=== PATIENT | female | born 1995 ===

== ENCOUNTER 2016-09-04 15:56 | Emergency (ER) | payer BC ==
[2016-09-04 16:17] VITALS: BP 114/56
--- NOTE | 2016-09-04 16:57 | UC ---
Respiratory Complaint HPI - HPI Summary HPI Summary: patient has been fighting on and off cough and congestion, fever for the past two months. 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 - History of Current Complaint Chief Complaint: UCGeneralIllness Stated Complaint: COUGH FEVER Time Seen by Provider: 09/04/16 16:37 Hx Obtained From: Patient Hx Last Menstrual Period: 08/12/16 ?: No Onset/Duration: Gradual Onset, Lasting Weeks Timing: Constant Severity Initially: Moderate Severity Currently: Moderate Pain Intensity: 4 Pain Scale Used: 0-10 Numeric Character: Cough: Productive Aggravating Factors: Exertion, Deep Breaths, Recumbent Position Alleviating Factors: Nothing Associated Signs And Symptoms: Positive: Dyspnea, URI, Nasal Congestion, Sinus Discomfort - Risk Factors Pulmonary Embolism Risk Factors: Negative Cardiac Risk Factors: Negative - Allergies/Home Medications Allergies/Adverse Reactions: Allergies Allergy/AdvReac Type Severity Reaction Status Date / Time No Known Allergies Allergy Verified 09/04/16 16:16 Home Medications: Home Medications Drospirenone-Ethinyl Estradiol [Janis 3-0.02 mg] 1 tab PO DAILY 09/04/16 [History Confirmed 09/04/16] PMH/Surg Hx/FS Hx/Imm Hx Previously Healthy: Yes - Surgical History Surgical History: Yes Surgery Procedure, Year, and Place: left knee surgery 2009 - Family History Known Family History: Negative: Cardiac Disease, Hypertension - Social History Alcohol Use: Occasionally Substance Use Type: None Smoking Status (MU): Never Smoked Tobacco Review of Systems Constitutional: Fever, Fatigue Skin: Negative Eyes: Negative ENT: Sore Throat, Nasal Discharge Respiratory: Shortness Of Breath, Cough Cardiovascular: Negative Gastrointestinal: Negative Genitourinary: Negative Motor: Negative Neurovascular: Negative Musculoskeletal: Myalgia Neurological: Headache Psychological: Negative All Other Systems Reviewed And Are Negative: Yes Physical Exam Triage Information Reviewed: Yes Appearance: Well-Nourished, Ill-Appearing, Pain Distress Vital Signs: Initial Vital Signs Temp 99.7 F 09/04/16 16:12 Pulse 61 09/04/16 16:12 Resp 16 09/04/16 16:12 BP 114/56 09/04/16 16:12 Pulse Ox 100 09/04/16 16:12 Vital Signs Reviewed: Yes Eye Exam: Normal Eyes: Positive: Conjunctiva Clear ENT: Positive: Pharyngeal erythema, TMs normal, Muffled/hoarse voice Dental Exam: Normal Neck exam: Normal Neck: Positive: Supple, Nontender, No Lymphadenopathy Respiratory Exam: Normal Respiratory: Positive: Chest non-tender, No respiratory distress, No accessory muscle use, Wheezing, Inspiration Cardiovascular Exam: Normal Cardiovascular: Positive: RRR, No Murmur, Pulses Normal Abdominal Exam: Normal Abdomen Description: Positive: Nontender, No Organomegaly, Soft Bowel Sounds: Positive: Present Musculoskeletal Exam: Normal Musculoskeletal: Positive: Strength Intact, ROM Intact, No Edema Neurological Exam: Normal Neurological: Positive: Alert, Muscle Tone Normal Psychological Exam: Normal Skin Exam: Normal UC Diagnostic Evaluation - Laboratory O2 Sat by Pulse Oximetry: 100 Respiratory Course/Dx - Course Course Of Treatment: hx obtained, exam performed, meds prescribed, for bronchospasm - Differential Dx/Diagnosis Differential Diagnosis/HQI/PQRI: Asthma, Bronchitis, Influenza, Laryngitis, Sinusitis Provider Diagnoses: bronchospams Discharge - Discharge Plan Condition: Stable Disposition: HOME Prescriptions: guaiFENesin/CODIEN 100MG-10MG* [Robitussin AC 100Mg-10Mg*] 10 ml PO BEDTIME PRN #100 ml MDD 10 ml PRN Reason: Cough predniSONE TAB* [Deltasone TAB*] 40 mg PO DAILY #10 tab Patient Education Materials: Bronchospasm (ED)
== END 2016-09-04 17:21 | disposition home or self-care (01) ==
LOC: UCCORT 15:56
DX: J98.01 Acute bronchospasm (principal)
CPT/HCPCS: 99202; G0463

== ENCOUNTER 2016-11-28 12:37 | Emergency (ER) | payer BC ==
[2016-11-28 13:21] VITALS: BP 110/58
--- NOTE | 2016-11-28 13:53 | UC ---
Throat Pain/Nasal Woodrow HPI - HPI Summary HPI Summary: THREE DAYS OF SORE THROAT COUGH ACHE CHILLS. - History of Current Complaint Chief Complaint: UCRespiratory Stated Complaint: SORE THROAT ACHY CHILLS Time Seen by Provider: 11/28/16 12:43 Hx Obtained From: Patient Hx Last Menstrual Period: 11/23/16 Onset/Duration: Gradual Onset, Lasting Days, Still Present Severity: Moderate Cough: Nonproductive Associated Signs & Symptoms: Positive: Hoarseness, Fever - Allergies/Home Medications Allergies/Adverse Reactions: Allergies Allergy/AdvReac Type Severity Reaction Status Date / Time No Known Allergies Allergy Verified 11/28/16 13:14 PMH/Surg Hx/FS Hx/Imm Hx Previously Healthy: Yes - Surgical History Surgical History: Yes Surgery Procedure, Year, and Place: left knee surgery 2009 - Family History Known Family History: Negative: Cardiac Disease, Hypertension - Social History Occupation: Employed Full-time, Employed Part-time Lives: With Family Alcohol Use: Occasionally Substance Use Type: None Smoking Status (MU): Never Smoked Tobacco - Immunization History Most Recent Influenza Vaccination: NONE Review of Systems Constitutional: Chills Skin: Negative Eyes: Negative ENT: Sore Throat Respiratory: Cough Cardiovascular: Negative Gastrointestinal: Negative Genitourinary: Negative Motor: Negative Neurovascular: Negative Musculoskeletal: Negative Neurological: Negative Psychological: Negative All Other Systems Reviewed And Are Negative: Yes Physical Exam Triage Information Reviewed: Yes Appearance: Well-Appearing, No Pain Distress, Well-Nourished Vital Signs: Initial Vital Signs Temp 101.2 F 11/28/16 13:15 Pulse 101 11/28/16 13:15 Resp 18 11/28/16 13:15 BP 110/58 11/28/16 13:15 Pulse Ox 99 11/28/16 13:15 Vital Signs Reviewed: Yes ENT: Positive: Hearing grossly normal, Pharyngeal erythema, TMs normal, Tonsillar swelling, Tonsillar exudate Dental Exam: Normal Neck exam: Normal Neck: Positive: Supple, Nontender, No Lymphadenopathy Respiratory Exam: Normal Respiratory: Positive: Chest non-tender, Lungs clear, Normal breath sounds, No respiratory distress, No accessory muscle use Cardiovascular Exam: Normal Cardiovascular: Positive: RRR, No Murmur Abdominal Exam: Normal Musculoskeletal Exam: Normal Musculoskeletal: Positive: Strength Intact, ROM Intact Neurological Exam: Normal Psychological Exam: Normal Psychological: Positive: Normal Response To Family Skin Exam: Normal Throat Pain/Nasal Course/Dx - Differential Dx/Diagnosis Differential Diagnosis/HQI/PQRI: Pharyngitis, Sinusitis, Tonsillitis, URI Provider Diagnoses: UPPER RESPIRATORY INFECTION; TONSILLITIS Discharge - Discharge Plan Condition: Stable Disposition: HOME Patient Education Materials: Upper Respiratory Infection (ED), Tonsillitis (ED) , Viral Syndrome (ED) Forms: *Work Release Referrals: [facility] [place] [facility] [Outside] Non Staff,Doctor [Primary Care Provider] -
== END 2016-11-28 13:50 | disposition home or self-care (01) ==
LOC: UCCORT 12:37
DX: J06.9 Acute upper respiratory infection, unspecified (principal); J03.90 Acute tonsillitis, unspecified
CPT/HCPCS: 87651; 99211; G0463

== ENCOUNTER 2017-03-25 16:29 | Emergency (ER) | payer BC ==
[2017-03-25 16:44] VITALS: BP 103/84
--- NOTE | 2017-03-25 17:00 | UC ---
Skin Complaint HPI - HPI Summary HPI Summary: Had what she thought was a blackhead in the center of her back under her bra line--she picked and it became every red with a purulent center are- - History of Current Complaint Chief Complaint: UCSkin Time Seen by Provider: 03/25/17 16:53 Stated Complaint: SKIN COMPLAINT Hx Obtained From: Patient Hx Last Menstrual Period: 02/24/17 ?: No Onset/Duration: Gradual Onset, Worse Since - picking wound a few days ago Timing: Constant Onset Severity: Mild Current Severity: Moderate Location: Discrete Character: Redness, Painful Aggravating Factor(s): Touch Alleviating Factor(s): Nothing Associated Signs & Symptoms: Positive: Drainage, Tenderness - Allergy/Home Medications Allergies/Adverse Reactions: Allergies Allergy/AdvReac Type Severity Reaction Status Date / Time No Known Allergies Allergy Verified 03/25/17 16:44 Review of Systems Constitutional: Negative Skin: Other - erythema with center pustula in center of back under bra line Eyes: Negative ENT: Negative Respiratory: Negative Cardiovascular: Negative Gastrointestinal: Negative Genitourinary: Negative Motor: Negative Neurovascular: Negative Musculoskeletal: Negative Neurological: Negative Psychological: Negative Is Patient Immunocompromised?: No All Other Systems Reviewed And Are Negative: Yes PMH/Surg Hx/FS Hx/Imm Hx Previously Healthy: Yes - Surgical History Surgical History: Yes Surgery Procedure, Year, and Place: left knee surgery 2009 - Family History Known Family History: Negative: Cardiac Disease, Hypertension - Social History Occupation: Student Lives: With Family Alcohol Use: Weekly Substance Use Type: None Smoking Status (MU): Never Smoked Tobacco - Immunization History Most Recent Influenza Vaccination: no Physical Exam Triage Information Reviewed: Yes Appearance: Well-Appearing, No Pain Distress, Well-Nourished Vital Signs: Initial Vital Signs Temp 98.4 F 03/25/17 16:38 Pulse 64 03/25/17 16:38 Resp 14 03/25/17 16:38 BP 103/84 03/25/17 16:38 Pulse Ox 100 03/25/17 16:38 Vital Signs Reviewed: Yes Eye Exam: Normal Eyes: Positive: Conjunctiva Clear ENT Exam: Normal ENT: Positive: Normal ENT inspection, Hearing grossly normal, Pharynx normal. Negative: Nasal congestion, Nasal drainage, Trismus, Muffled/hoarse voice Dental Exam: Normal Neck exam: Normal Neck: Positive: Supple, Nontender, No Lymphadenopathy Respiratory Exam: Normal Respiratory: Positive: Chest non-tender, No respiratory distress, No accessory muscle use Cardiovascular Exam: Normal Cardiovascular: Positive: RRR, No Murmur, Pulses Normal, Brisk Capillary Refill Musculoskeletal Exam: Normal Musculoskeletal: Positive: Strength Intact, ROM Intact, No Edema Neurological Exam: Normal Neurological: Positive: Alert, Muscle Tone Normal Psychological Exam: Normal Skin Exam: Normal Skin: Positive: Other - 10 cm erythema with 5 mm pustula center of back Course/Dx - Course Course Of Treatment: culture wound, warm compresses q4 hours bulky dressing, keflex follow at [facility] prn - Differential Diagnoses - Skin Complaint Differential Diagnoses: Abscess, Cellulitis, Local Allergic Reaction, MRSA, Urticaria - Diagnoses Provider Diagnoses: Draining abcess with cellulitis center of back Discharge - Discharge Plan Condition: Stable Disposition: HOME Prescriptions: Cephalexin CAP* [Keflex CAP*] 500 mg PO QID #20 cap Patient Education Materials: Wound Infection (ED), Warm Compress or Soak (ED) Referrals: Non Staff,Doctor [Primary Care Provider] - Additional Instructions: Follow at [facility] or return as needed--
== END 2017-03-25 17:07 | disposition home or self-care (01) ==
LOC: UCCORT 16:29
DX: L02.212 Cutaneous abscess of back [any part, except buttock and flank] (principal); L03.312 Cellulitis of back [any part except buttock and flank]; B95.7 Other staphylococcus as the cause of diseases classified elsewhere
CPT/HCPCS: 87070; 87077; 87186; 87205; 99212; G0463

== ENCOUNTER → 2017-08-19 08:23 | Emergency (ER) | payer BC ==
[2017-08-19 09:52] VITALS: BP 126/74
--- NOTE | 2017-08-19 10:25 | RAD ---
Indication: Neck pain post fall August 17, 2017. Comparison: No relevant prior exams available on the [facility] [place] [facility] for comparison. Technique: AP, open-mouth odontoid, lateral, and oblique views cervical spine. Report: Normal alignment from the craniocervical junction through the cervicothoracic junction. Negative for fracture. Preserved disc spaces. Oblique views are negative for osseous foraminal stenosis. Unremarkable prevertebral soft tissue contours. IMPRESSION: Negative radiographic series of the cervical spine.
--- NOTE | 2017-08-19 10:32 | UC ---
Minor Trauma HPI - HPI Summary HPI Summary: Pt reports that she fell on ice on 08/17/17 while walking on side walk. 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 Deniees, LOC< nausea, vomiting, worsening RIOS or change in vision. Pt does reports: neck pain and stiffness and tender bump on crown of head. Additionally, pt reports that she had two nosebleeds 1 day post fall. None since. - History of Current Complaint Chief Complaint: UCHeadInjury Stated Complaint: HEAD INJURY (SAT) NOSE BLEEDS NECK PAIN Time Seen by Provider: 08/19/17 09:55 Hx Obtained From: Patient Hx Last Menstrual Period: 08/09/17 ?: No Onset/Duration: Sudden Onset, Gradual Onset Onset Of Pain: Post Accident Severity Initially: Moderate Severity Currently: Mild Pain Intensity: 6 Mechanism Of Injury: Fall From A Standing Position Aggravating Factor(s): Movement - neck movement Alleviating Factor(s): Ice, Rest - Allergies/Home Medications Allergies/Adverse Reactions: Allergies Allergy/AdvReac Type Severity Reaction Status Date / Time No Known Allergies Allergy Verified 08/19/17 09:50 PMH/Surg Hx/FS Hx/Imm Hx Previously Healthy: Yes - Surgical History Surgical History: Yes Surgery Procedure, Year, and Place: left knee surgery 2009 - Family History Known Family History: Negative: Cardiac Disease, Hypertension - Social History Occupation: Employed Full-time Lives: With Family Alcohol Use: Rare Substance Use Type: None Smoking Status (MU): Never Smoked Tobacco Have You Smoked in the Last Year: No - Immunization History Most Recent Influenza Vaccination: no Review of Systems Constitutional: Negative Skin: Negative Eyes: Negative ENT: Epistaxis Respiratory: Negative Cardiovascular: Negative Gastrointestinal: Negative Genitourinary: Negative Motor: Decreased ROM - neck Neurovascular: Negative Musculoskeletal: Myalgia - neck Neurological: Negative Psychological: Negative Is Patient Immunocompromised?: No All Other Systems Reviewed And Are Negative: Yes Physical Exam Triage Information Reviewed: Yes Appearance: Well-Appearing, No Pain Distress Vital Signs: Initial Vital Signs Temp 98.6 F 08/19/17 09:47 Pulse 58 08/19/17 09:47 Resp 14 08/19/17 09:47 BP 126/74 08/19/17 09:47 Pulse Ox 100 08/19/17 09:47 Vital Signs Reviewed: Yes Eye Exam: Normal ENT Exam: Normal ENT: Positive: Normal ENT inspection, TMs normal Dental Exam: Normal Neck exam: Other Neck: Positive: Supple, Other: - c/o decreased ROM due to stuffness and pain Respiratory Exam: Normal Cardiovascular Exam: Normal Musculoskeletal: Positive: ROM Limited @ - neck Neurological Exam: Normal Neurological: Positive: Alert, Muscle Tone Normal Psychological Exam: Normal Skin Exam: Normal Minor Trauma Course/Dx - Differential Dx/Diagnosis Differential Diagnosis/HQI/PQRI: Contusion(s), Fracture, Other - subdural hematoma Provider Diagnoses: concussion-mild. cervical strain Discharge - Discharge Plan Condition: Stable Disposition: HOME Patient Education Materials: Concussion (ED), Acute Neck Pain (ED) Referrals: [facility] [place] [facility] [Outside] Non Staff,Doctor [Primary Care Provider] - Additional Instructions: Please follow up with a PCP. I f symptoms do not improve, seek medical attention immediately.
== END | disposition home or self-care (01) ==
LOC: UCCORT 08:23
DX: S06.0X0A Concussion without loss of consciousness, initial encounter (principal); S16.1XXA Strain of muscle, fascia and tendon at neck level, initial encounter; W00.0XXA Fall on same level due to ice and snow, initial encounter; Y93.01 Activity, walking, marching and hiking; Y92.480 Sidewalk as the place of occurrence of the external cause
CPT/HCPCS: 72050; 99211; G0463

== ENCOUNTER 2017-09-16 19:13 | Emergency (ER) | payer BC ==
[2017-09-16 19:34] VITALS: BP 115/59
--- NOTE | 2017-09-16 19:47 | UC ---
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 10 yrs ago) hx of anxiey she thinks she needs an inhaler - History of Current Complaint Chief Complaint: UCRespiratory Stated Complaint: TROUBLE BREATHING Time Seen by Provider: 09/16/17 19:41 Hx Obtained From: Patient Hx Last Menstrual Period: CURRENT Onset/Duration: Gradual Onset, Lasting Hours Timing: Constant Current Severity: Mild Dyspnea At: Rest Aggrevating Factors: Nothing Alleviating Factors: Spontaneous Resolution Associated Signs & Symptoms: Positive: Nasal Congestion - Allergy/Home Medications Allergies/Adverse Reactions: Allergies Allergy/AdvReac Type Severity Reaction Status Date / Time No Known Allergies Allergy Verified 09/16/17 19:27 PMH/Surg Hx/FS Hx/Imm Hx Previously Healthy: Yes Respiratory History: Other Other Respiratory History: possible reactive airway disease Psychological History: Anxiety - Surgical History Surgical History: Yes Surgery Procedure, Year, and Place: left knee surgery 2009 - Family History Known Family History: Negative: Cardiac Disease, Hypertension, Diabetes - Social History Alcohol Use: Occasionally Substance Use Type: None Smoking Status (MU): Never Smoked Tobacco Have You Smoked in the Last Year: No - Immunization History Most Recent Influenza Vaccination: no Review of Systems Constitutional: Negative Skin: Negative Eyes: Negative ENT: Negative Respiratory: Shortness Of Breath Cardiovascular: Negative Gastrointestinal: Negative Genitourinary: Negative Motor: Negative Neurovascular: Negative Musculoskeletal: Negative Neurological: Negative Psychological: Negative Is Patient Immunocompromised?: No All Other Systems Reviewed And Are Negative: Yes Physical Exam Triage Information Reviewed: Yes Appearance: Well-Appearing, No Pain Distress, Well-Nourished Vital Signs: Initial Vital Signs Temp 98.7 F 09/16/17 19:27 Pulse 71 09/16/17 19:27 Resp 16 09/16/17 19:27 BP 115/59 09/16/17 19:27 Pulse Ox 100 09/16/17 19:27 Vital Signs Reviewed: Yes Eyes: Positive: Conjunctiva Clear ENT: Positive: Hearing grossly normal, Pharynx normal, Nasal congestion, TMs normal. Negative: Nasal drainage, Trismus, Muffled voice, Hoarse voice, Dental tenderness Neck: Positive: Supple, Nontender Respiratory: Positive: Lungs clear, Normal breath sounds, No respiratory distress, No accessory muscle use Cardiovascular: Positive: RRR, No Murmur Musculoskeletal: Positive: ROM Intact, No Edema Neurological: Positive: Alert Psychological Exam: Normal Skin Exam: Normal Diagnostics - Laboratory Diagnostic Studies Completed/Ordered: pulse ox 100% room air comment : leonardo/not hypoxic Shortness of Breath Dx - Differential Dx/Diagnosis Provider Diagnoses: dyspnea of uncertain cause Discharge - Discharge Plan Condition: Stable Disposition: HOME Patient Education Materials: Dyspnea (ED) Referrals: No Primary Care Phys,NOPCP [Primary Care Provider] - Additional Instructions: return for new or worsening symptoms you need to find a local primary care provider see list
[2017-09-16] MEDS ORDERED: Albuterol HFA INHALER* 8 gm MDI INH ONE (19:58)
== END 2017-09-16 20:19 | disposition home or self-care (01) ==
LOC: UCCORT 19:13
DX: R06.00 Dyspnea, unspecified (principal); R09.81 Nasal congestion; F41.9 Anxiety disorder, unspecified
CPT/HCPCS: 99213; A9270-GY; G0463

== ENCOUNTER 2019-06-05 13:19 | Emergency (ER) | payer BC ==
[2019-06-05 13:52] VITALS: BP 126/78
[2019-06-05 14:13] LABS: Influenza A Molecular NEGATIVE (Negative); Influenza B Molecular NEGATIVE (Negative)
--- NOTE | 2019-06-05 14:29 | UC ---
Throat Pain/Nasal Woodrow HPI - HPI Summary HPI Summary: Pt presents with c/o month long illness that includes ST, nasal congestion, sinus pressure and pain, fever and chills. - History of Current Complaint Chief Complaint: UCGeneralIllness Stated Complaint: CHILLS, ACHY, SORE THROAT, NECK PAIN Time Seen by Provider: 06/05/19 14:15 Hx Obtained From: Patient Hx Last Menstrual Period: 05/09/19 ?: No Onset/Duration: Gradual Onset, Lasting Weeks, Still Present Severity: Moderate Pain Intensity: 6 Associated Signs & Symptoms: Positive: Sinus Discomfort, Fever - Epiglottits Risk Factors Epiglottis Risk Factors: Negative - Allergies/Home Medications Allergies/Adverse Reactions: Allergies Allergy/AdvReac Type Severity Reaction Status Date / Time No Known Allergies Allergy Verified 06/05/19 13:47 Home Medications: Home Medications Escitalopram Oxalate [Lexapro 10 mg] 1 tab PO DAILY 06/05/19 [History Confirmed 06/05/19] busPIRone TAB* [Buspar TAB*] 1 tab PO DAILY 06/05/19 [History Confirmed 06/05/19 ] PMH/Surg Hx/FS Hx/Imm Hx Previously Healthy: Yes - Surgical History Surgical History: Yes Surgery Procedure, Year, and Place: left knee surgery 2009 - Family History Known Family History: Negative: Cardiac Disease, Hypertension, Diabetes - Social History Occupation: Employed Full-time Lives: With Family Alcohol Use: Occasionally Substance Use Type: None Smoking Status (MU): Never Smoked Tobacco Have You Smoked in the Last Year: No - Immunization History Most Recent Influenza Vaccination: no Review of Systems All Other Systems Reviewed And Are Negative: Yes Constitutional: Positive: Fever, Chills, Fatigue Skin: Positive: Negative Eyes: Positive: Negative ENT: Positive: Sore Throat, Sinus Congestion, Sinus Pain/Tenderness Respiratory: Positive: Negative Cardiovascular: Positive: Negative Gastrointestinal: Positive: Negative Genitourinary: Positive: Negative Motor: Positive: Negative Neurovascular: Positive: Negative Musculoskeletal: Positive: Myalgia Neurological: Positive: Negative Psychological: Positive: Negative Is Patient Immunocompromised?: No Physical Exam Triage Information Reviewed: Yes Appearance: Well-Appearing Vital Signs: Initial Vital Signs Temp 101 F 06/05/19 13:48 Pulse 107 06/05/19 13:48 Resp 20 06/05/19 13:48 BP 126/78 06/05/19 13:48 Pulse Ox 100 06/05/19 13:48 Vital Signs Reviewed: Yes Eye Exam: Normal ENT Exam: Other ENT: Positive: Sinus tenderness Dental Exam: Normal Neck exam: Normal Respiratory Exam: Normal Cardiovascular Exam: Normal Cardiovascular: Positive: Tachycardia Musculoskeletal Exam: Normal Neurological Exam: Normal Psychological Exam: Normal Skin Exam: Normal Throat Pain/Nasal Course/Dx - Course Course Of Treatment: Pt is unsure if she has had mono but denies significan fatigue or ST at time of PE. - Differential Dx/Diagnosis Differential Diagnosis/HQI/PQRI: Influenza, Mononucleosis, Otitis Media, Sinusitis, Tonsillitis, URI Provider Diagnosis: Sinusitis Discharge ED - Sign-Out/Discharge Documenting (check all that apply): Patient Departure All imaging exams completed and their final reports reviewed: No Studies - Discharge Plan Condition: Stable Disposition: HOME Prescriptions: Amoxicillin PO (*) [Amoxicillin 875 MG (*)] 875 mg PO Q12H #20 tab Patient Education Materials: Sinusitis (ED), Safe Use of NSAIDs (ED) Referrals: [facility] [place] [facility] [place]] - If Needed No Primary Care Phys,NOPCP [Primary Care Provider] - - Billing Disposition and Condition Condition: STABLE Disposition: Home
== END 2019-06-05 14:35 | disposition home or self-care (01) ==
LOC: UCCORT 13:19
DX: J32.9 Chronic sinusitis, unspecified (principal); R09.81 Nasal congestion; R53.83 Other fatigue
CPT/HCPCS: 87651; 99212; G0463